=== PATIENT | female | born 1965 | race Caucasian/White ===

== ENCOUNTER 2017-12-31 16:37 | Emergency (ER) | payer SELFPAY, OTHER, MEDICAID ==
[2017-12-31] MEDS: IBUPROFEN 800 MG TAB PO (19:05)
== END 2017-12-31 19:47 | disposition home or self-care (01) ==
LOC: FTE 16:37
DX: S80.01XA Contusion of right knee, initial encounter (principal); W01.0XXA Fall on same level from slipping, tripping and stumbling without subsequent striking against object, initial encounter; Y92.9 Unspecified place or not applicable
CPT/HCPCS: 73562; 73590; 99284-25

== ENCOUNTER 2019-01-10 08:21 | Emergency (ER) | payer OTHER, MEDICAID ==
[2019-01-10] MEDS: ONDANSETRON 4 MG INJ IV (09:36)
[2019-01-10] MEDS: KETOROLAC 30 MG INJ IV (09:37)
[2019-01-10] MEDS: morphine 4 MG/ML VIAL IV (09:39)
[2019-01-10 11:50] LABS: ADD MAN DIFF? NO
[2019-01-10 11:52] LABS: WHITE BLOOD COUNT 6.4 10^3/ul (4.8-10.8)
[2019-01-10 11:52] LABS: BASOPHILS % 0.6 % (0.0-2.0); EOSINOPHILS # 0.1 10^3/ul (0.0-0.5); EOSINOPHILS % 0.9 % (0.0-7.0); HEMATOCRIT 41.8 % (37.0-47.0); HEMOGLOBIN 13.9 g/dl (12.0-16.0); LYMPHOCYTES # 1.4 10^3/ul (0.8-2.9); MEAN CORPUSCULAR HEMOGLOBIN 29.8 pg (29.0-33.0); MEAN CORPUSCULAR HGB CONC 33.3 g/dl (32.0-37.0); MEAN CORPUSCULAR VOLUME 89.5 fl (82.0-101.0); MEAN PLATELET VOLUME 10.7 fl (7.4-10.4); MONOCYTE # 0.5 10^3/ul (0.3-0.9); MONOCYTES % 7.9 % (0.0-11.0); NEUTROPHIL # 4.3 10^3/ul (1.6-7.5); NEUTROPHILS % 68.3 % (39.0-77.0); PLATELET COUNT 276 10^3/UL (140-415); RED BLOOD COUNT 4.67 10^6/ul (4.20-5.40); RED CELL DISTRIBUTION WIDTH 12.3 % (11.5-14.5)
[2019-01-10 11:57] LABS: ANION GAP 11 (5-13); BLOOD UREA NITROGEN 14 mg/dl (7-20); CALCIUM 9.4 mg/dl (8.4-10.2); CARBON DIOXIDE 28 mmol/L (21-31); CHLORIDE 102 mmol/L (97-110); CREATININE 0.66 mg/dl (0.44-1.00); Estimated GFR > 60 mL/min (>60); GLUCOSE 128 mg/dl (70-220); POTASSIUM 3.9 mmol/L (3.5-5.1); SODIUM 141 mmol/L (135-144)
[2019-01-10 12:09] LABS: TROPONIN-I < 0.012 ng/ml (0.000-0.120)
== END 2019-01-10 12:41 | disposition home or self-care (01) ==
LOC: E/R 08:21
DX: R07.89 Other chest pain (principal)
CPT/HCPCS: 36415; 71045; 80048; 84484; 85025; 93005; 96374; 96375; 99285-25